=== PATIENT | male | born 1950 | race Caucasian/White ===

== ENCOUNTER → 2017-11-05 13:38 | Outpatient (CLI) | payer MEDICARE, SELFPAY ==
[2017-11-05 08:21] VITALS: BP 158/99; PULSE 58; RESP 16; TEMP 36.4; O2SAT 99; BMI 30.2
[2017-11-05 09:35] LABS: Hematocrit 40.8 % (40-54); Hemoglobin 14.1 g/dl (13.0-16.5); Mean Corp Hgb Conc 34.6 g/gl (32-36); Mean Corpuscular Hgb 31.8 pg (27.0-32.0); Mean Corpuscular Volume 91.9 fL (80-94); Mean Platelet Vol. 9.7 fl (6.2-12.0); Platelet Count 136 K/mm3 (150-450); RBC Distribution Width CV 12.3 % (11.6-14.6); RBC Distribution Width SD 41.5 fl (35.1-43.9); Red Blood Count 4.44 M/mm3 (4.6-6.2); Scan Indicated on CBC? Y/N NO
[2017-11-05 09:44] LABS: International Normalized Ratio 1.1; Prothrombin Time (Protime)PT. 13.3 SECONDS (11.7-14.9)
[2017-11-05 09:45] LABS: Partial Thromboplast Time 30.2 Seconds (24.1-36.2)
[2017-11-05 10:11] LABS: AST(SGOT) 16 U/L (15-37); Alanine Aminotransfer ALT/SGPT 17 U/L (12-78); Albumin, Serum 3.4 g/dL (3.4-5.0); Alkaline Phosphatase 90 U/L (45-117); Bilirubin, Direct 0.16 mg/dL (0.00-0.30); Globulin 3.3 g/dL (2.2-4.2); Protein, Total 6.7 g/dL (6.4-8.2)
== END ==
PROVIDERS: Anesthesiology; Family Provider Family Medicine; PCP Family Medicine; Visit Provider Urology
DX: R69 Illness, unspecified (principal)
CPT/HCPCS: 80076; 85027; 85610; 85730; 93005

== ENCOUNTER → 2018-03-24 12:23 | Outpatient (CLI) | payer MEDICARE, SELFPAY ==
--- NOTE | 2018-03-24 12:27 | STEWCON_ITS ---
Reason For Study: LYNCH Stress Results Protocol: Benson Protocol Maximum Predicted HR: 152 bpm Target HR: 129 bpm% Max imum Predicted HR: 97 % DurationHeart Rate Stage (mm:ss) (bpm) BPCom ment Baseline 49 136/90 Definity 3 ML Given Diluted Benson Protocol Stage I 3:00 10 0 128/76 Benson Protocol Stage II 3:00 11 5 130/74 Benson Protocol Stage III 1:30 14 8 / Recovery 98 124/86 Stress Duration: 7:30 mm:ss Maximum Stress HR: 148 bpmM ETS: 9 Baseline Echocardiogram Findings Stress Echo Wall motion Data Resting WMIntermediate WMStress WM Resting Wall Motion Wall Motion Stress All segments Normal. All segments Hyperkinetic. Ejection Fraction 55 %. Ejection Fraction 65 %. Stress Results Heart rate response: appropriate Blood pressure response: normal resting BP - appropriate response Arrhythmias: rare PVC pretest; occasional PVC during exercise; intermittent ventricular bigeminey during exercise; occasional PVC during recovery Functional capacity: good Stopped secondary to: dyspnea. EKG Data Baseline ECG: sinus bradycardia. Peak exercise ECG: no obvious ECG changes. Symptoms with Stress No c/o chest discomfort during exercise / recovery. Interpretation Summary Negative (adequate) Stress Echocardiograpm Ordering Physician: Joss Burr Referring Physician: Kulwant Ohara MD Performed By: Ashlyn Palm, RDCS, RVT
== END ==
PROVIDERS: Family Provider Family Medicine; PCP Family Medicine; Visit Provider Family Medicine
DX: R06.09 Other forms of dyspnea (principal)
CPT/HCPCS: 93017; 93350; Q9957; A4216; C8928

== ENCOUNTER → 2018-04-14 09:55 | Outpatient (CLI) | payer MEDICARE, SELFPAY ==
[2018-04-14 12:21] LABS: Anion Gap 8 (5-15); BUN 21 mg/dL (7-18); BUN/Creat Ratio 19.8 RATIO (10-20); Calcium,Total 8.7 mg/dL (8.5-10.1); Chloride 108 mmol/L (98-107); Creatinine, Serum 1.06 mg/dL (0.70-1.30); EST Glomerular Filtration Rate 74 mL/min (>60); Est Glom Filt Rate - Afr Amer 89 mL/min (>60); Glucose 87 mg/dL (74-106); PSA,Total - Annual Screen 4.07 ng/mL (0.00-4.00); Potassium 4.3 mmol/L (3.5-5.1); Sodium Level 142 mmol/L (136-145)
== END ==
PROVIDERS: Family Provider Family Medicine; PCP Family Medicine; Visit Provider Family Medicine
DX: Z00.00 Encounter for general adult medical examination without abnormal findings (principal); Z12.5 Encounter for screening for malignant neoplasm of prostate
CPT/HCPCS: 36415; 80048; 84153; G0103

== ENCOUNTER → 2018-09-11 10:49 | Outpatient (CLI) | payer MEDICARE, SELFPAY ==
--- NOTE | 2018-09-11 10:54 | ECHOD_ITS ---
Reason For Study: DYSPNEA/SOB Procedure This was a 2D Doppler, Color Flow transthoracic echocardiogram. Exam performed in department. Left Ventricle Normal LV size. Left ventricular systolic function is normal. The estimated ejection fraction is 60 %. Diastolic function is indeterminate. No regional wall motion abnormalities noted. Right Ventricle Normal RV size. Normal systolic function. Atria Normal left atrium. Normal right atrium. No doppler evidence for ASD. Mitral Valve There is no mitral annular calcification. Normal mitral valve. Mild (1+) mitral valve insufficiency. Tricuspid Valve Normal tricuspid valve. Trivial tricuspid valve insufficiency. Right ventricular systolic pressure estimated to be 23 mmHg. Aortic Valve Trisinus/trileaflet aortic valve. Normal aortic valve. Pulmonic Valve The pulmonic valve is not well visualized. Mild (1+) pulmonic valve insufficiency. Great Vessels Normal sized aortic root. Pericardium/Pleural No pericardial effusion. MMode/2D Measurements & Calculations LVIDd: 5.5 cm IVSd: 1.1 cm Ao root diam: 3.5 cm LVIDs: 3.6 cm LVPWd: 0.92 cm LA dimension: 4.3 cm RVDd: 3.7 cm FS: 34.9 % LAV(MOD-bp): 53.8 ml LA A4 area: 17.2 cm2 RA A4 area: 14.5 cm2 LAV(MOD-bp) Indexed: 26.1 ml/m2 LAV(MOD-sp2): 50.0 ml LAV(MOD-sp4): 50.0 ml Doppler Measurements & Calculations MV E max romie: 48.0 cm/sec Lat Peak E' Romie: 5.7 cm/sec Med Peak E' Romie: 4.5 cm/sec MV A max romie: 73.3 cm/sec E/E' lat: 8.5 E/E' med: 10.7 MV E/A: 0.65 Ao V2 max: 94.7 cm/sec LV V1 max: 71.8 cm/sec PA V2 max: 127.4 cm/sec Ao max P.6 mmHg LV V1 max P.1 mmHg TR max romie: 220.9 cm/sec TR max P.5 mmHg Interpretation Summary Left ventricular systolic function is normal. The estimated ejection fraction is 60 %. Mild (1+) mitral valve insufficiency. Trivial tricuspid valve insufficiency. Mild (1+) pulmonic valve insufficiency. Right ventricular systolic pressure estimated to be 23 mmHg. Diastolic function is indeterminate. Ordering Physician: Joss Burr Referring Physician: Joss Burr Performed By: Teetee Ruiz RDCS, RVT
== END ==
PROVIDERS: Family Provider Family Medicine; PCP Family Medicine; Referring Provider Family Medicine; Visit Provider Family Medicine
DX: R06.09 Other forms of dyspnea (principal)
CPT/HCPCS: 93306

== ENCOUNTER → 2018-11-18 07:16 | Outpatient (CLI) | payer MEDICARE, SELFPAY ==
[2018-11-18 07:40] LABS: EGFR FINGERSTICK > 60.0000 mL/min (>60)
== END ==
PROVIDERS: Family Provider Family Medicine; PCP Family Medicine; Referring Provider Otolaryngology; Visit Provider Otolaryngology
DX: H93.12 Tinnitus, left ear (principal); H91.90 Unspecified hearing loss, unspecified ear

== ENCOUNTER → 2019-04-14 | Outpatient (CLI) | payer MEDICARE, SELFPAY ==
[2019-04-14 12:50] LABS: Anion Gap 2 (5-15); BUN 18 mg/dL (7-18); BUN/Creat Ratio 18.3 RATIO (10-20); Calcium,Total 8.7 mg/dL (8.5-10.1); Chloride 109 mmol/L (98-107); Creatinine, Serum 0.98 mg/dL (0.70-1.30); EST Glomerular Filtration Rate 80 mL/min (>60); Est Glom Filt Rate - Afr Amer 97 mL/min (>60); Glucose 86 mg/dL (74-106); PSA,Total - Annual Screen 1.62 ng/mL (0.00-4.00); Potassium 4.3 mmol/L (3.5-5.1); Sodium Level 139 mmol/L (136-145)
[2019-04-14 17:47] LABS: Cholesterol 151 mg/dL (200); High Density Lipoprotein 46 mg/dL; Triglycerides 94 mg/dL; Very Low Density Lipoprotein 19 mg/dL (5-40)
== END | disposition home or self-care (01) ==
LOC: MTLAB 09:24
PROVIDERS: Family Provider Family Medicine; PCP Family Medicine; Referring Provider Family Medicine; Visit Provider Family Medicine
DX: I10 Essential (primary) hypertension (principal); Z12.5 Encounter for screening for malignant neoplasm of prostate
CPT/HCPCS: 36415; 80048; 80061; 84153; G0103

== ENCOUNTER → 2019-05-26 | Outpatient (CLI) | payer MEDICARE, SELFPAY ==
[2019-05-11 13:37] VITALS: BMI 30.1
--- NOTE | 2019-05-26 07:51 | ECHOCS_ITS ---
Reason For Study: Dyspnea/SOB Procedure This was a 2D Doppler, Color Flow transthoracic echocardiogram. The study was technically difficult. Contrast injection was performed. Exam performed in department. Left Ventricle Mild concentric left ventricular hypertrophy. The estimated ejection fraction is 60 %. Stage 1 diastolic dysfunction. No regional wall motion abnormalities noted. Right Ventricle Normal size and thickness. Normal systolic function. Atria Normal left atrium. Normal right atrium. Normal atrial septum. Mitral Valve The mitral valve is structurally normal. No prolapse or stenosis seen. Trivial mitral valve insufficiency. Tricuspid Valve Normal tricuspid valve. Trivial tricuspid valve insufficiency. Right ventricular systolic pressure estimated to be 25 mmHg. Aortic Valve Normal aortic valve. Trisinus/trileaflet aortic valve. Pulmonic Valve Normal pulmonic valve. Trivial pulmonic valve insufficiency. Great Vessels Normal aortic root. Normal arch. Normal inferior vena cava. Inferior vena cava collapse with sniff. Pericardium/Pleural No pericardial effusion. Medication 22 gauge I.V. with prn adaptor inserted into right arm. Diluted definity 3ml given slow IV push to enhance endocardial definition. Performed a rapid injection of agitated mix of 9 cc saline and 1cc air to assess for atrial septal defect. MMode/2D Measurements & Calculations LVIDd: 4.7 cm IVSd: 1.5 cm LA dimension: 4.5 cm LVIDs: 3.1 cm LVPWd: 1.3 cm RVDd: 3.4 cm FS: 34.5 % LAV(MOD-bp): 48.5 ml LA A4 area: 17.5 cm2 RA A4 area: 16.4 cm2 LAV(MOD-bp) Indexed: 23.8 ml/m2 LAV(MOD-sp2): 46.8 ml LAV(MOD-sp4): 47.9 ml Time Measurements MV dec time: 0.30 sec Doppler Measurements & Calculations MV E max romie: 46.7 cm/sec Lat Peak E' Romie: 5.6 cm/sec Med Peak E' Romie: 4.5 cm/sec MV A max romie: 75.1 cm/sec E/E' lat: 8.4 E/E' med: 10.3 MV E/A: 0.62 MV V2 max: 80.9 cm/sec MV P1/2t max romie: 44.0 cm/sec Ao V2 max: 96.4 cm/sec MV max P.6 mmHg MV P1/2t: 140.5 msec Ao max P.7 mmHg MV V2 mean: 34.4 cm/sec MV dec slope: 91.7 cm/sec2 MV mean P.57 mmHg MV V2 VTI: 24.7 cm MVA(P1/2t): 1.6 cm2 LV V1 max: 72.8 cm/sec PA V2 max: 132.9 cm/sec TR max romie: 225.1 cm/sec LV V1 max P.1 mmHg TR max P.3 mmHg Interpretation Summary Mild concentric left ventricular hypertrophy. The estimated ejection fraction is 60 %. Stage 1 diastolic dysfunction. Trivial mitral valve insufficiency. Trivial tricuspid valve insufficiency. Right ventricular systolic pressure estimated to be 25 mmHg. Compared to echo report dated 09/11/2018, no appreciable changes noted. Ordering Physician: Yamil Sewell Referring Physician: Joss Burr M.D. Performed By: Chapito Willis RCS
== END | disposition home or self-care (01) ==
LOC: CVS 07:50
PROVIDERS: Family Provider Family Medicine; PCP Family Medicine; Referring Provider Internal Medicine Cardiovascular Disease; Visit Provider Internal Medicine Cardiovascular Disease
DX: R06.09 Other forms of dyspnea (principal)
CPT/HCPCS: 93306; Q9957; A4216; C8929

== ENCOUNTER → 2019-05-28 | Outpatient (CLI) | payer MEDICARE, SELFPAY ==
[2019-05-11 13:37] VITALS: BMI 30.1
--- NOTE | 2019-05-28 09:41 | STEWCON_ITS ---
Reason For Study: Dyspnea on Exertion Stress Results Protocol: Benson Protocol Maximum Predicted HR: 151 bpm Target HR: 128 bpm % Maximum Predicted HR: 83 % DurationHeart Rate Stage (mm:ss) (bpm) BP Comment Baseline 58 122/80No Chest Pain; Diluted Definity 3 ML Given Benson Protocol Stage I 3:00 91 130/70No Chest Pain Benson Protocol Stage II 3:00 106 134/70No Chest Pain; Mild Dyspnea Benson Protocol Stage II 3:00 125 142/74No Chest Pain; Mild to Moderate Dyspnea; Knee Pain Recovery 73 118/74No Chest Pain Stress Duration: 9:00 mm:ss Maximum Stress HR: 125 bpm METS: 10 Baseline Echocardiogram Findings The estimated ejection fraction is 60 %. Stress Echo Wall motion Data Resting WM Intermediate WM Stress WM Resting Wall Motion Wall Motion Stress No regional wall motion Mid-Lateral : Mildly hypokinetic. abnormalities noted. Mid-Inferior: Mildly hypokinetic. EKG Data The baseline ECG displays normal sinus rhythm. The patient exercised according to the regular Benson protocol for a total duration of 9:00. The maximum heart rate attained was 127 beats per minute. This was 84% of maximum predicted heart rate. The patient exercised into stage 4 of the Benson protocol. During stress, there were no ST or T wave changes noted to suggest ischemia. No clinical angina was noted. Interpretation Summary The estimated ejection fraction is 60 %. Mid-Lateral : Mildly hypokinetic Mid-Inferior: Mildly hypokinetic Abnormal, adequate, treadmill echocardiogram. Positive for ischemia for possible inferior lateral wall hypokinesis seen in the parasternal short axis only. No anginal symptoms noted. Rare PVCs and ventricular couplets noted. Average exercise capacity for age. Appropriate blood pressure response to exercise. Final LVEF approximately 70%. Difficult echo windows requiring Definity enhancing agent. Test terminated due to dyspnea which may be an anginal equivalent. No complications. The study was technically difficult. Contrast injection was performed. Ordering Physician: Yamil Sewell Referring Physician: Joss Burr Performed By: Reyna Dill, KHARI, RVT
== END | disposition home or self-care (01) ==
LOC: CVS 09:40
PROVIDERS: Family Provider Family Medicine; PCP Family Medicine; Referring Provider Internal Medicine Cardiovascular Disease; Visit Provider Internal Medicine Cardiovascular Disease
DX: I10 Essential (primary) hypertension (principal); R06.09 Other forms of dyspnea
CPT/HCPCS: 93017; 93350; Q9957; A4216; C8928

== ENCOUNTER 2019-06-30 07:01 | Day surgery (SDC) | payer MEDICARE, SELFPAY ==
[2019-05-11 13:37] VITALS: BMI 30.1
--- NOTE | 2019-06-02 10:17 | RAD_ITS ---
STUDY: X-RAY CHEST REASON FOR EXAM: Male, 68 years old. Pre-op, heart catheterization. TECHNIQUE: PA and lateral views of the chest. COMPARISON: PA chest and left RIBS, June 29, 2015. FINDINGS: The lungs are clear and expanded. There is a calcified granuloma along the right diaphragmatic surface. There is no demonstrated pleural abnormality. Normal size heart. Normal mediastinum and roque. Normal visualized pulmonary arteries. Normal visualized aortic arch and descending thoracic aorta. Normal visualized thoracic spine. Normal visualized ribs, clavicles, and shoulders. There is no demonstrated abnormality of the visualized soft tissue structures of the upper abdomen. RAD/Chest PA and Lateral IMPRESSION: No acute cardiopulmonary disease or major interval change. Electronically Signed: Tomas Mace DO at 17:56 EDT Tel [phone], Service support ,
[2019-06-02 11:28] LABS: Hematocrit 39.1 % (40-54); Hemoglobin 13.5 g/dl (13.0-16.5); Mean Corp Hgb Conc 34.5 g/gl (32-36); Mean Corpuscular Hgb 31.3 pg (27.0-32.0); Mean Corpuscular Volume 90.5 fL (80-94); Mean Platelet Vol. 9.6 fl (6.2-12.0); Platelet Count 153 K/mm3 (150-450); RBC Distribution Width CV 12.4 % (11.6-14.6); RBC Distribution Width SD 40.1 fl (35.1-43.9); Red Blood Count 4.32 M/mm3 (4.6-6.2); White Blood Count 4.5 K/mm3 (4.4-11.0)
[2019-06-02 11:29] LABS: Scan Indicated on CBC? Y/N NO
[2019-06-02 11:36] LABS: International Normalized Ratio 1.1; Prothrombin Time (Protime)PT. 13.8 SECONDS (11.7-14.9)
[2019-06-02 11:37] LABS: Partial Thromboplast Time 30.4 Seconds (24.1-36.2)
[2019-06-02 12:02] LABS: AST(SGOT) 16 U/L (15-37); Alanine Aminotransfer ALT/SGPT 18 U/L (16-61); Albumin, Serum 3.3 g/dL (3.2-5.0); Alkaline Phosphatase 89 U/L (45-117); Anion Gap 5 (5-15); BUN 16 mg/dL (7-18); BUN/Creat Ratio 15.5 RATIO (10-20); Bilirubin, Direct 0.14 mg/dL (0.00-0.30); Calcium,Total 8.5 mg/dL (8.5-10.1); Chloride 109 mmol/L (98-107); Cholesterol 142 mg/dL (200); Creatinine, Serum 1.03 mg/dL (0.70-1.30); EST Glomerular Filtration Rate 76 mL/min (>60); Est Glom Filt Rate - Afr Amer 92 mL/min (>60); Globulin 3.3 g/dL (2.2-4.2); Glucose 89 mg/dL (74-106); High Density Lipoprotein 48 mg/dL; Potassium 4.5 mmol/L (3.5-5.1); Protein, Total 6.6 g/dL (6.4-8.2); Sodium Level 142 mmol/L (136-145); Triglycerides 108 mg/dL; Very Low Density Lipoprotein 22 mg/dL (5-40)
[2019-06-28 13:01] VITALS: BMI 30.1
[2019-06-29 09:30] VITALS: PULSE 51
--- NOTE | 2019-06-29 16:24 | HP.PCM_ITS ---
History and Physical Date of Admission: 06/30/19 [facility] [address] [place], [place] [address] OFFICE VISIT Date of Service: 06/28/19 MR#:[id number]:[id number] Name: YI SHIRLEY ARep #:[id number] : 1950 Provider:Yamil Sewell MD Age/Sex: 68/M Location:[facility] Status:Signed HPI HPI History of Present Illness Surgical H&P: Yes Details: History of Present Illness Details: Referring physician Dr. Joss Burr Mr. Simpson he is a very pleasant 68-year-old gentleman former smoker who quit around 1994 after smoking 20 pack years, nonalcoholic, with hypertension, allergies and occasionally requires Pro Air inhaler, and strong positive family history and several of his first-degree relatives including his mother, father brothers and sisters. Specifically his father at age 85 and underwent a CABG surgery followed several years later by a valve repair surgery. His coronary disease presented at age 63. His mother at 81 and had a pacemaker, brother had an GA and apparently a sudden cardiac arrest followed by CABG at age 59, and his sister is 61 years old and has recently received stents. Patient presents with worsening dyspnea on exertion and shortness of breath. On further history he underwent a treadmill EKG on 03/24/2018 at [facility]. That time he had rare PVCs, stop due to dyspnea, went about 7-1/2 minutes, and had appropriate blood pressure response to exercise. No chest pain was noted, and no imaging was obtained. In addition he underwent a 2D echo with Doppler on 09/11/2018 which showed an EF of 60%, undetermined diastolic function, mild mitral regurgitation, and an RVSP estimated to be 23 mmHg per it appears his dyspnea has been going on since at least 2013. His EKG dated 11/05/2017 showed sinus bradycardia, otherwise normal. EKG dated today 05/11/2019 shows normal sinus rhythm, left anterior hemiblock, and poor R wave progression across precordium which may be suggestive of old anterior wall myocardial infarction versus lead misplacement. In addition, the patient has a strong positive family history of coronary disease in his father who had bypass surgery at age 65 and again in his 80s, his mother who had bypass surgery in her 60s, a sister who had bypass surgery, and a brother who had bypass surgery in his 60s. Patient states that about a year ago he was supposed to undergo a TURP, and upon arrival for preop evaluation he was found to be significantly hypertensive. He is normally hypotensive. He was started on lisinopril and his blood pressure improved. Despite this improvement of his blood pressure, the patient has had episodes of exertional substernal chest pressure which is described as faint, with associated dyspnea on exertion, usually occurs at the conclusion of his exercise and then goes away in a few minutes. Despite adequate blood pressure control the symptoms have persisted. Patient states he had pulmonary function tests recently but I do not have those results. In order to better evaluate his above symptoms, he underwent a stress echocardiogram on 05/28/2019 which was abnormal for inferolateral ischemia. In addition prior to being started on dual antiplatelet therapy he noticed some tonya hematuria and requires a second TURP. Since starting on dual antiplatelet therapy he has had no further hematuria. His initial hematuria occurred under strenuous circumstances working in his garden. In our office his blood pressure is 132/84, and pulse is 56 and regular. His physical exam demonstrates clear lungs bilaterally, regular rate and rhythm, normal S1/S2, no S3-S4. EKGs as of 06/28/2019 shows sinus bradycardia, normal axis, normal intervals, no evidence of previous myocardial infarction. Lipids as of March 2019 showing LDL of 86 and an HDL of 46 per. Lipids as of 06/02/2019 show an LDL of 72 and HDL of 48. 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 Accompanied by: None Is patient in pain?: No Allergies No Known Allergies Allergy (Verified 06/28/19 13:01) Medications Dutasteride [Avodart] 0.5 mg PO DAILY 11/05/17 [History Confirmed 06/23/19] lisinopril 10 mg tablet 10 mg PO DAILY 04/26/19 [History Confirmed 06/23/19] aspirin 81 mg tablet,delayed release 81 mg PO DAILY #30 tab 05/11/19 [Rx Confirmed 06/23/19] clopidogrel 75 mg tablet 75 mg PO DAILY #30 tab 06/02/19 [Rx Confirmed 06/23/19] fluticasone propionate 50 mcg/actuation nasal spray,suspension 2 spray INTRANASAL DAILY PRN 06/28/19 [History Confirmed 06/23/19] Ejection fraction %: 60 to 64 [facility] Medical History Encounter for monitoring antiplatelet therapy (Acute) Other forms of angina pectoris (Acute) Abnormal EKG (Acute) Abnormal stress echo (Acute) Dyspnea on exertion (Acute) Essential hypertension (Chronic) Family history of ischemic heart disease (Chronic) BPH (benign prostatic hyperplasia) (Chronic) Surgical History History of cholecystectomy (Chronic 07/1992) History of cystoscopy (Chronic 05/10/14) History of prostate biopsy (Chronic 05/21/11) History of transurethral resection of prostate (Chronic 03/04/12) Family History Mother CAD (coronary artery disease) Brother , age 69 Pancreatic cancer Father , age 65 from pneumonia CAD (coronary artery disease) S/P CABG (coronary artery bypass graft), Onset Age: 65 Sister CAD (coronary artery disease) Stented coronary artery Brother CAD (coronary artery disease) Sister Multiple sclerosis Social History (Updated 06/28/19 @ 13:51 by Yamil Sewell MD) Smoking Status: Former smoker quit date: 11/24/94 Tobacco: How many years used: 20 alcohol intake: current alcohol intake frequency: holidays/special occasions only Alcohol type: beer substance use type: does not use caffeine: No ROS Const Const: Negative for fatigue, weakness, headache(s), frequent falls, difficulty sleeping or excessive sweating Eyes Eyes: Negative for loss of peripheral vision, transient loss of vision, blurry vision, double vision or tunnel vision ENT ENT: Negative for headache(s), dizziness, Nosebleed/epistaxis or balance problems Cardio Chest Pain: No Palpitations: No Edema: None Muscle aches with walking: None Resp Respiratory: Positive for SOB with activity; negative for SOB orthopnea\SOB lying down, Cough or paroxysmal nocturnal dyspnea GI GI: Negative nausea, vomiting, heartburn or black,tarry stools : Negative for hematuria Musc Musc: Negative for muscle aches/ myalgia, muscle weakness, joint pain or balance problems Skin Skin: Negative non-healing lesions, rash or unusual bruising Neuro Neuro: Negative for dizziness, lightheadedness, near syncope, syncope, frequent falls, headache(s), weakness, blurry vision, double vision or lack of coordination Sky Hematologic/Lymphatic: Negative for easy bleeding or easy bruising Endo Endo: Negative for fatigue, excessive sweating or increased thirst/drinking Psych Psych: Negative for anxiety or depression Allergy Allergy/Immunology: Negative for hives, Negative for rash Cardiology Exam Const Appearance: cooperative, healthy appearing and no acute distress Nutritional Appearance: well nourished Orientation: alert, oriented x3 and oriented to person Head Head: normal to inspection, normocephalic and atraumatic Nose: external nose normal Face and Sinus: face symmetric Mouth: oral mucosae normal Eyes General: appearance normal, both eyes and all related structures Eyelids: eyelids normal Conjunctivae: conjunctivae normal Pupils: PERRL and normal by confrontation EOM: EOM intact bilaterally Neck Neck: normal visual inspection and full ROM Carotids: normal carotid upstroke Chest Chest inspection: normal inspection of the chest Auscultation: Bilateral: Clear to Auscultation Cardio Palpation: normal PMI Rate: regular rate Rhythm: regular rhythm Heart sounds: S1 normal and S2 normal GI GI: normal to inspection, no hepatosplenomegaly and bowel sounds present Neuro General: alert, awake, oriented x3, CN's II-XI intact bilaterally and moves all extremities Skin Skin: no rashes or lesions noted Extremities Pulses: Normal: Right Femoral Pulse, Left Femoral Pulse, Right Dorsalis Pedis Pulse, Left Dorsalis Pedis Pulse, Right Posterior Tibial Pulse, Left Posterior Tibial Pulse, Right Radial Pulse, Left Radial Pulse Lower Extremity Edema: None: Bilateral Psych Psychological: normal affect Assessment & Plan 1. Abnormal stress echo R94.39 Plan 1. Abnormal stress echo: The patient has an abnormal stress echocardiogram superimposed on a gentleman with a strong positive family history of coronary artery disease in his mother, father, brother and sister. In addition he is a former smoker, and now requires redo TURP surgery for tonya hematuria. In order to better evaluate the patient's abnormal stress test, and also to risk stratify him for upcoming prostate surgery, I recommend he undergo a diagnostic left heart catheterization. The risks/benefits of the procedure were thoroughly explained to the patient and informed consent was obtained, including specific attention to lack of on-site surgical back-up, and the patient agrees to proceed. Should the patient have a significant lesion which would require intervention, we may consider bare-metal stenting. In the meantime he will continue baby aspirin and Plavix as he does not appear to have any tonya hematuria outside of strenuous exercise. In addition his blood pressure is well controlled and he will continue lisinopril. Pending upon the outcome of his catheterization will determine whether he requires additional antilipid therapy despite his ideal lipid numbers at this time. 2. Return office in 6 months Orders Orders: 12 Lead EKG performed by [facility] Today Plan Detail Other Orders Orders: 12 Lead EKG performed by [facility] Today I10 Follow Up +6M (Donato) Coding Level of Care Code Off vis,est,level 3 Diagnoses Abnormal stress echo R94.39 Coding Level of Care Code Off vis,est,level 3 Diagnoses Abnormal stress echo R94.39 Supplemental Info Supplemental Information Labs LDL Cholesterol 72 mg/dL (0-130) 06/02/19 HDL Cholesterol 48 mg/dL (40-) 06/02/19 Triglycerides 108 mg/dL (-199) 06/02/19 VLDL Cholesterol 22 mg/dL (5-40) 06/02/19 Diagnostics Electrocardiogram 06/28/19 Echocardiogram 05/26/19 Stress Echocardiogram 05/28/19 Chest X-Ray 06/02/19 06/28/19 1351<Electronically signed by Yamil Sewell MD> Date Yamil Sewell MD
[2019-06-30] VITALS (37 sets, daily range): BP systolic 94–163; BP diastolic 52–98; PULSE 43–86; RESP 9–20; TEMP 36.6–36.7; O2SAT 95–99; BMI 29.6
--- NOTE | 2019-06-30 08:33 | DCINST_ITS ---
Discharge Diet: Low fat/ Low Cholesterol Discharge Activity: Return to Normal Activity May shower in (days): 1 - No tub baths for 5 days May resume sexual activity in: 1-2 weeks Lifting Restrictions: Do not lift anything greater than 10 pounds for 3 days Call your doctor if your incision/area has: Continuous Slow Oozing, Sudden Increased Bleeding, Increased Pain/ Swelling, Increased Redness, Foul Smelling Discharge, Swelling at the incision site Call your doctor if you observe: Fever of 101 or Higher, Shortness of breath, Chest pain Remove Dressing in (days):: 1 Cleanse incision/area with: Soap & Water Additional Instructions: You will continue with Aspirin therapy. You will remain on Plavix and Aspirin for at least 3-6 months before proceeding with TURP procedure unless surgeon is ok with procedure on both Aspirin and Plavix. Ideally, our goal is one year before stopping Plavix. You are scheduled for an office appointment on 07/19/2019 at 10:[address] Sewell. You are started on two new medications to help manage heart disease. These are Coreg and Atorvastatin. We will monitor your cholesterol values on a routine basis to ensure safety and effectiveness. Please continue to monitor heart rate and blood pressure. We will call you to schedule groin check prior to golfing. If you have any questions or concerns, please call the [facility] Office at [phone]. Allergies/Adverse Reactions: Allergies No Known Allergies Allergy (Verified 06/28/19 13:01) Medications to take at Discharge Dutasteride [Avodart] 0.5 mg PO DAILY 11/05/17 lisinopril 10 mg tablet 10 mg PO DAILY 04/26/19 aspirin 81 mg tablet,delayed release 81 mg PO DAILY #30 tab 05/11/19 clopidogrel 75 mg tablet 75 mg PO DAILY #30 tab 06/02/19 fluticasone propionate 50 mcg/actuation nasal spray,suspension 2 spray INTRANASAL DAILY PRN 06/28/19 ALPRAZolam [Xanax] 0.5 mg PO BID PRN 06/29/19 Albuterol Sulfate [Proair Respiclick] 90 mcg IH Q4H PRN PRN 06/29/19 Atorvastatin Calcium [Lipitor] 40 mg PO QHS #90 tab 07/01/19 Carvedilol [Coreg (Beta Ramses)] 3.125 mg PO BID tablet 07/01/19 Primary Care Physician: Joss Burr MD [Primary Care Provider] - Test Results: Test results from this visit will be discussed in further detail at your follow- up appointment, if applicable. Please Follow Up With: Dr. Sewell When: 07/19/2019 at 10:00 AM Proposed Discharge Date: 07/01/19 Cardiac Rehabilitation Info Cardiac Rehabilitation Program Information: Cardiac Rehabilitation is important for patients like you who are recovering from a heart problem. Cardiac rehabilitation programs are recognized as integral to the continued care of the patient with coronary heart disease. The cardiac rehabilitation program is designed to optimize a patient's physical, psychological, and social functioning. Health nurse healthcare manager work in cardiac rehabilitation programs and assist you with getting the t reatments you need to get stronger and healthier - like exercise, healthy eating habits, and medications. Cardiac rehabilitation has been show to help people with heart problems live longer and have better life enjoyment than people who do not go to cardiac rehabilitation. Please contact the Cardiac Rehabilitation Program at [facility] at in two weeks if you have not heard from them.
[2019-06-30 08:46] LABS: ACT Activated Clotting Time 191 sec (74-137)
--- NOTE | 2019-06-30 08:51 | CL.I_ITS ---
Patient Name: YI SHIRLEY Study Date: 06/30/2019 Performing: Yamil Sewell MD Ht: 68.89 inches 175 cm : 1950 Wt: 199.98 lbs 90.71 kg Age: 68 Gender: male BSA: 2.06 PROCEDURE(S) PERFORMED JF52-ORU/COR/LV ZS61-MCH W OR WO PTCA, SINGLE CORONARY ARTERY CLINICAL PROFILE AND CO-MORBIDITIES Indications: New Onset Angina <= 2 months, Suspected CAD, Pre-Operative Evaluation Heart Failure: None Stress/Imaging Date: 05/28/2019 Stress Echocardiogram: Positive Low Risk Angina Classification Anginal Classification w/in 2 Weeks: CCS II CAD Presentations: Unstable angina. 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 RECOMMENDATIONS Referred for immediate PCI Highly recommend quitting all tobacco products Follow up with primary historic sites supervisor Risk factor modification ASA Indefinitley Plavix for at least 12 months Routine post interventional care Refer for Outpatient Cardiac Rehab Manual sheath removal per protocol Follow up with Dr. Sewell Manual sheath removal as pt is too thin for Mynx Pt will need at least 6 months of DAPT prior to TURP. Pt may undergo TURP if surgeon is agreeable to proceed with DAPT on board through surgery. DESCRIPTION OF PROCEDURE The patient arrived to the procedure lab. The risks and benefits of the procedure as well as a full d escription of our services here and lack of surgical backup were fully explained to the patient and/o r their significant other prior to the catheterization. The Timeout was completed, verifying the kayla ect patient and procedure. The patient's procedural site was prepped and draped in the usual fashion. Local anesthetic was given subcutaneously to right groin region with Lidocaine 2%. Using a modified Seldinger technique, arterial access was obtained via the right femoral artery, a 4Fr sheath was inse rted. Left Coronary Artery selective angiography was performed in multiple views using a 4 Fr. JL5 c atheter. Right Coronary Artery selective angiography was then performed in multiple views using a 4 F r. 3DRC catheter. Left Ventriculography was performed in DELGADO projection using a 4 Fr. Pigtail cathete r. LV to AO pullback pressures were then recordedThe images were reviewed and options discussed. A decision was then made to proceed with an Intervention, IVUS or other adjunct procedure. HS II Guide catheter was inserted and engaged into the RCA. BMW Wiggins Guide wire was advanced to the RCA. Emerge 2.0 x 8 Balloon catheter was inserted. Balloon catheter was advanced across lesio n in the RPL proximal PTCA balloon inflated at 10 atms for 11 secs. PTCA balloon inflated at 10 atms for 8 secs. PTCA balloon inflated at 10 atms for 14 secs. Angiogram performed post balloon dilatatio n. Synergy 2.50 x 12 Drug Eluting stent was inserted. Drug Eluting stent was advanced across the lesi on in the RPL proximal Angiogram performed pre stent deployment. NC Emerge 3.0 x 8 Balloon catheter was inserted. Balloon catheter was advanced across lesion in the RPL proximal Angiogram performed po st balloon dilatation. The arterial sheath was sutured in place and capped CORONARY ANGIOGRAPHY DOMINANCE: Right Dominant LEFT HEART ASSESSMENT Left Ventricular Ejection Fraction: by LV Gram 65 % Normal Left Ventricular systolic function Normal LV wall motion LEFT MAIN: 20 distal % Stenosis LEFT ANTERIOR DESCENDING ARTERY: PROX LAD: 50 % Stenosis CIRCUMFLEX ARTERY: OSTIAL CIRC: 30 % Stenosis RIGHT CORONARY ARTERY: MID RCA: Moderate ectasia RT PLV: 85 % Stenosis INTERVENTION INFORMATION LESION SITE: RPL (2nd) Lesion Complexity: Non-High/Non-C, lesion at bifurcation: No, thrombus present: No, lesion length: 12 mm, culprit lesion: Yes Pre Stenosis: 85 % Pre intervention BAILEY flow: 3 PROCEDURE: Drug Eluting Stent with pre and post dilatation Post Stenosis: 0 % Post intervention BAILEY flow: 3 Lesion Devices: ObjectVide[employer]ronic 6 Fr HSII 100cm Guide Catheter Melvin .014 BMW Wiggins Straight 190cm Percy Sci Synergy MR PARVIZ 2.50x12 Percy Sci NC EMERGE MR 3.00x08 BALLOON COMPLICATIONS No Complications PROCEDURE MEDICATIONS Versed 1 mg IV Oxygen: 2 L/min via nasal cannula Heparin 6000 unit(s) IV 06/30/2019 08:11:05 Nitro 200 mcg IC 06/30/2019 08:13:51 Nitro 200 mcg IC 06/30/2019 08:13:51 IV Bolus: .9 NaCl 500 ml total 06/30/2019 08:34:11 SUMMARY OF HEMODYNAMIC DATA Time AIR REST ECG 07:18:51 AO 120/71 (92) SA 07:58:15 LV 141/-19, 14 08:05:44 LV 141/-20, 12 08:05:50 LVp 146/-17, 11 08:05:55 AOp 139/71 (99) 08:06:00 Signed By Yamil Sewell MD On 06/30/2019 08:50:10 Yamil Sewell MD
--- NOTE | 2019-06-30 08:53 | EKG12_ITS ---
Test Reason : AM EKG Blood Pressure : / mmHG Vent. Rate : 055 BPM Atrial Rate : 055 BPM P-R Int : 194 ms QRS Dur : 090 ms QT Int : 452 ms P-R-T Axes : 046 003 056 degrees QTc Int : 432 ms Sinus bradycardia Low voltage QRS Borderline ECG When compared with ECG of 30-JUN-2019 13:09, MANUAL COMPARISON REQUIRED, DATA IS UNCONFIRMED Confirmed by RINKU BOGGS, ADRI ([id number]), slot editor TERESA RABAGO ([id number]) on 07/13/2019 2:00:45 PM Referred By: Yamil Sewell Confirmed By:MAGGIE DOBBS MD
[2019-06-30] MEDS: 0.9% Normal Saline 1,000 ML 150 ML IV (09:30)
--- NOTE | 2019-06-30 10:00 | EKG12_ITS ---
Test Reason : Blood Pressure : / mmHG Vent. Rate : 047 BPM Atrial Rate : 047 BPM P-R Int : 180 ms QRS Dur : 092 ms QT Int : 470 ms P-R-T Axes : 040 000 048 degrees QTc Int : 415 ms Marked sinus bradycardia Low voltage QRS Abnormal ECG When compared with ECG of 05-NOV-2017 08:50, No significant change was found Confirmed by RINKU BOGGS, ADRI ([id number]), editor & co founder TERESA RABAGO ([id number]) on 07/13/2019 2:04:56 PM Referred By: Yamil Sewell Confirmed By:MAGGIE DOBBS MD
--- NOTE | 2019-06-30 10:10 | CASEMGMT ---
RN SEBASTIÁN BOOSTER ASSEMBLER CM to room to meet with patient for initial transition planning/care coordination assessment. RN SEBASTIÁN introduced self and role at [facility]. Pt voices understanding and consents to assessment at this time. Pt resting in bed in no distress at this time. and daughter @ bedside. Pt is A/O at this time and answers all questions appropriately. Care providers, pharmacy, and demographics verified at this time. PCP: Dr Joss Burr Specialists: Dr Sewell--cardiology, Dr Boggs--urology @ [facility] Preferred Pharmacy: [facility] Insurance: [employer] [facility] Prescription Benefit: Yes Living Will/HPOA: Pt does not currently have LW/HCPOA and is interested in talking with SW. JASPREET Woo, made aware. LNOK: and 4 adult daughters Living Arrangements: Lives w/. Independent. Transportation: Pt states drives self and states no transportation concerns at this time. will drive @ [place] DME: Denies using any DME and denies needs. HHC/SNF: No history of either and no needs identified. Pt wishes to return home and states has no concerns with going home at time of discharge. CM to follow for any discharge planning/needs. Pt voices no further concerns/needs at this time. Advised pt to ask for CM if any further questions/concerns/needs arise. Voices understanding. PLAN: Home w/family support and discharge plans in place. Simon NIETO RN, CM
[2019-06-30 10:51] LABS: ACT Activated Clotting Time 153 sec (74-137)
[2019-06-30] MEDS: Morphine 2 MG/ML Syringe IV (11:03)
--- NOTE | 2019-06-30 11:10 | CASEMGMT ---
Per RN CM patient wants advance directive information. SW attempted to meet with patient, however nursing was working with patient and fire extinguisher charger said it would be awhile. SW will check back. Amna GAR MSW
--- NOTE | 2019-06-30 13:02 | NURSING ---
WINE MASTER called d/t hypotension & bradycardia.
[2019-06-30] MEDS: Atropine Sulfate 1 MG/10 ML Syringe IV (13:03)
[2019-06-30] MEDS: Ketorolac 15 MG/ML Vial IV (13:19)
--- NOTE | 2019-06-30 13:19 | CASEMGMT ---
SW attempted to talk with patient again, however per RN patient is not feeling well at this time. A few minutes later an THREAD PULLER was called. SW will check back with patient tomorrow regarding advance directives. Amna GAR MSW
[2019-06-30 13:28] LABS: Hematocrit 36.5 % (40-54); Hemoglobin 12.8 g/dL (13.0-16.5)
--- NOTE | 2019-06-30 13:35 | CHAPLAIN ---
Type of Pastoral Visit ___ Initial Visit ___ Follow-up Visit ___ On-call Visit ___ General Patient Visit ___ Spiritual Assessment ___ Family Conference ___ Bereavement _x__ Rapid Response ___ Code Blue ___ Other (describe below) Pastoral Care Referral From ___ Patient ___ Family ___ Nurse ___ Physician ___ Internal Grinder ___ Doctorate Of Chiropractic _x__ Other (describe below) Sacrament/Intervention _x__ Active listening ___ Anointing ___ Holiness ___ Bereavement ___ Communion ___ Nora exploration ___ ___ Life review _x__ Prayer ___ Reconciliation ___ Sacrament of Sick _x__ Supportive presence ___ Wedding ___ Other (describe below) Pastoral Comments offered support to family first as patient was attended by medical team; family members welcomed prayer spoken for pt; then talked with patient and offered support; presence given until crisis passed; pt was alert and talkative to this raw scales operator
--- NOTE | 2019-06-30 14:01 | CRPHASE1 ---
Patient Communication PHII Cardiac Rehab Discussed with Patient:: Yes Guide to Cardiac Rehab Given to Patient:: Yes Cardiac Rehab Facility Choice List Given to Patient:: Yes - [facility] Choice Program [facility] CR PHII:: Communication Given to CR, Refer to [facility] Photoresist Contact Printer:: Raimundo OCASIO PCP:: Yamil Sewell Sessions:: 36 sessions - 3 days/wk, 12 weeks Risk Factors/Lifestyle Smoking Status: Former smoker Hx Hypertension: Yes - ON LISINOPRIL Hx Diabetes Mellitus Type 2: No Height: 1.75 m Weight:: 90.7 kg BMI: 29.6 Post-Menopausal: No ETOH: Yes Caffeine: No Substance Abuse: No Family History: Family History (Last Reviewed 06/28/19 @ 13:03 by Ashley Heller) Mother CAD (coronary artery disease) Brother Pancreatic cancer Father CAD (coronary artery disease) S/P CABG (coronary artery bypass graft), Onset Age: 65 Sister CAD (coronary artery disease) Stented coronary artery Brother CAD (coronary artery disease) Sister Multiple sclerosis Family History: Heart Disease, Hypertension Laboratory Values: Cardiac Rehab Phase I Labs Triglycerides 108 mg/dL (-199) 06/02/19 10:35 Cholesterol 142 mg/dL (200) 06/02/19 10:35 72 mg/dL (0-130) 06/02/19 10:35 48 mg/dL (40-) 06/02/19 10:35 Phase I Education Given On:: [place], Nutrition, Antiplatelet medication, CHF Issues Affecting Care:: None Knowledge of Condition:: Yes Hospital Course Presenting Symptoms:: SOB NO CHEST PAIN' Cardiac Cath Date:: 06/30/19 Medical/Surgical History [place]:: No Angina:: No CAD:: No Cardiomyopathy:: No Pulmonary:: No COPD:: No Asthma:: No Diabetes:: No Diabetes Type II:: No Hypertension:: Yes Discharge/Home/Social Eval Discharge Disposition: Home Marital Status: - Cardiac Rehabilitation Info Cardiac Rehabilitation Program Information: Cardiac Rehabilitation is important for patients like you who are recovering from a heart problem. Cardiac rehabilitation programs are recognized as integral to the continued care of the patient with coronary heart disease. The cardiac rehabilitation program is designed to optimize a patient's physical, psychological, and social functioning. Health progressive care unit registered nurse work in cardiac rehabilitation programs and assist you with getting the treatments you need to get stronger and healthier - like exercise, healthy eating habits, and medications. Cardiac rehabilitation has been show to help people with heart problems live longer and have better life enjoyment than people who do not go to cardiac rehabilitation. Please contact the Cardiac Rehabilitation Program at [facility] at in two weeks if you have not heard from them.
--- NOTE | 2019-06-30 14:05 | CRPH1.INSTRU ---
General Education CAD and cardiac anatomy and function:: Patient communicates acknowledgment, Family communicates acknowledgment Explanation of diagnoses and procedures:: Patient communicates acknowledgment, Family communicates acknowledgment Sign/Symptoms of FL:: Patient communicates acknowledgment, Family communicates acknowledgment Antiplatelet therapy: Not instructed Proper use of NTG-SL: Not instructed Emergency procedures and activation of EMS: Patient communicates acknowledgment, Family communicates acknowledgment Compliance of all prescribed medications: Patient communicates acknowledgment, Not instructed Smoking Patient Nicotine/Smoking Risk Factors Are:: Non-smoker Dyslipidemia Patient Dyslipidemia Risk Factors Are:: Total Cholesterol - 142, Triglycerides - 108, HDL - 48, LDL - 72 Recommendations Include:: Lipid profile provided Overweight/Obesity Patient Overweight/Obesity Risk Factors Are:: Overweight = 26-29 Hypertension Recommendations Include:: Maintain BP <130/85 - ON MEDS Heart Disease Patient Heart Disease Risk Factors Are:: Family history of heart disease < 65 years old Recommendations Include:: Educated family members of their risk Heart Disease Response Code:: Patient communicates acknowledgment Diabetes Patient Diabetes Risk Factors Are:: No documented hx of diabetes Metabolic Syndrome Patient Metabolic Syndrome Risk Factors Are [3 of 5]:: Hypertension, Low HDL <40 [male] or < 50 [female] Metabolic Syndrome Response Code:: Patient communicates acknowledgment Sedentary Sedentary Response Code:: Patient communicates acknowledgment - VERY ACTIVE Stress Patient Stress Risk Factors Are:: Patient denies stress as a risk factor
--- NOTE | 2019-06-30 17:50 | NURSING ---
Bedrest up at 1735. Pt up to chair w/no difficulties. Back Pain 3, but states much better, just uncomfortable, not painful.
[2019-06-30] MEDS: Ibuprofen 600 MG Tablet PO (18:06)
[2019-06-30] MEDS: Atorvastatin Calcium 40 MG Tablet PO (21:23)
[2019-06-30] MEDS: Docusate Sodium 100 MG Capsule PO (21:24)
[2019-07-01] VITALS (10 sets, daily range): BP systolic 93–139; BP diastolic 61–97; PULSE 42–68; RESP 11–17; TEMP 36.6; O2SAT 96–98
[2019-07-01 04:15] LABS: Absolute Lymphocyte Count 1.06 X10^3/uL (0.83-4.51); Absolute Neutrophil Count 3.1 X10^3/uL (2.0-7.7); Basophil# 0.05 X10^3/uL; Eosinophil# 0.23 X10^3/uL; Eosinophils% 4.5 % (0-5); Hematocrit 33.7 % (40-54); Hemoglobin 11.6 g/dL (13.0-16.5); Lymphocyte # 1.06 X10^3/ul (4.0); Lymphocyte % 20.7 % (19-41); Mean Corp Hgb Conc 34.4 g/dL (32-36); Mean Corpuscular Hgb 32.2 pg (27.0-32.0); Mean Corpuscular Volume 93.6 fL (80-94); Mean Platelet Vol. 9.2 fl (6.2-12.0); Monocyte# 0.64 X10^3/uL; Monocyte% 12.5 % (0-10); NRBC Flagged by Analyzer 0 % (0-5); Neutrophil # 3.12 X10^3/uL (2.7-7.7); Neutrophil % 60.9 % (47-70); Platelet Count 116 K/mm3 (150-450); RBC Distribution Width CV 12.1 % (11.6-14.6); RBC Distribution Width SD 41.9 fl (35.1-43.9); White Blood Count 5.1 K/mm3 (4.4-11.0)
[2019-07-01 04:28] LABS: Anion Gap 6 (5-15); BUN 15 mg/dL (7-18); Chloride 113 mmol/L (98-107); Creatinine, Serum 0.94 mg/dL (0.70-1.30); EST Glomerular Filtration Rate 85 mL/min (>60); Est Glom Filt Rate - Afr Amer 103 mL/min (>60); Estimated Creatinine Clearance 71.76 ml/min; Glucose 94 mg/dL (74-106); Potassium 3.9 mmol/L (3.5-5.1); Sodium Level 143 mmol/L (136-145)
--- NOTE | 2019-07-01 07:24 | PCM.PN.BLA ---
Progress Note Patient is not discharged on beta-wicho due to significant bradycardia and hypotension noted with introduction of Coreg.
--- NOTE | 2019-07-01 08:47 | PN.CARD_ITS ---
Subjectve: Patient feeling much better this morning. No further back pain. Telemetry showed normal sinus rhythm with rare PVCs. Hemoglobin and creatinine are within nominal limits. Right groin is clean/dry/intact without evidence of thrills, bruits or hematoma. EKG shows normal sinus rhythm, no acute changes. Objective: Vital Signs Temp Pulse Resp BP Pulse Ox 97.8 F 52 L 16 113/77 96 07/01/19 04:00 07/01/19 06:00 07/01/19 06:00 07/01/19 06:00 07/01/19 06:00 Oxygen Delivery Method Room Air Weight: 202 lb 2.622 oz Body Mass Index (BMI) 29.6 Intake and Output for Last 24 Hours 06/29/19 06/30/19 07/01/19 23:59 23:59 23:59 Intake Total 1500 / 1500 200 / 200 Output Total 450 / 450 350 / 350 Balance 1050 / 1050 -150 / -150 General: Awake, Alert, Oriented x 3 HEENT: PERRL, EOMI, Sclera Non Icteric Neck: Supple, Good ROM, No Lymph Node Enlargement Lungs: Clear to auscultation Cardiovascular: Regular Rhythm, Normal S1, Normal S2, No Murmurs, No Rubs, No Gallops Vascular: No Carotid Bruits, Normal Femoral Pulses, Normal Radial Pulses, Normal Dorsalis Pedal Pulse, Normal Posterior Tibial Pulses Abdomen: Bowel Sounds Present, Soft, Non Tender, No HSM, No Organomegaly Extremities: No Cyanosis, No Clubbing, No edema Neurological: No Focal Motor or Sensory Deficit 06/30/19 13:10: Hgb 12.8 L, Hct 36.5 L 07/01/19 04:10: WBC 5.1, RBC 3.60 L, Hgb 11.6 L, Hct 33.7 L, MCV 93.6, MCH 32.2 H, MCHC 34.4, Plt Count 116 L, MPV 9.2, Immature Gran % (Auto) 0.400, Neut % (Auto) 60.9, Lymph % (Auto) 20.7, Sheridan % (Auto) 12.5 H, Eos % (Auto) 4.5, Baso % (Auto) 1.0, Absolute Neuts (auto) 3.1, Nucleated RBC % 0 07/01/19 04:10: Sodium 143, Potassium 3.9, Chloride 113 H, Carbon Dioxide 24.0, Anion Gap 6, BUN 15, Creatinine 0.94, Est GFR (MDRD) Af Amer 103, Est GFR (MDRD) Non-Af 85, BUN/Creatinine Ratio 16.0, Glucose 94, Calcium 8.0 L Rhythm: EKG: ECHO: Stress Test: Cardiac Cath: PCI: CT Surgery: Holter monitor: EPS: PPM: CXR: Chest CT Scan: Medical Necessity - Tobacco Use Smoking Status: Former smoker Assessment/Plan 1. Coronary artery disease: The patient was found to have significant mid right posterior lateral branch stenosis of approximately 85% treated with a drug- eluting stent with an excellent result. He had minimal nonobstructive disease of his LAD, left circumflex and remaining right coronary artery. Patient is at low risk for noncardiac prostate surgery. He informs me this morning that he is prostate biopsy was negative for cancer. At this point the patient require dual antiplatelet therapy of baby aspirin and Plavix for at least one years time. The patient will require at least a minimum of dual antiplatelet therapy of 3 months prior to any kind of surgical procedure. Our preference would be that he have at least 6 months of dual Atripla therapy prior to any surgery, but at a minimum of 3 months. In addition the patient was started on Coreg for his hypertension and beta- wicho requirements. He will continue lisinopril. He will follow-up with us in the office in 1 week's time for groin check. He will then be enrolled in cardiac rehab. 2. Hyperlipidemia: Continue Lipitor. Repeat lipid profile after cardiac rehab is completed. 3. Patient will be discharged home. Thank you very much for the opportunity to participate in the cardiac care of your patient. Code Visit Inpatient E&M: [id number] Subs Hosp L2
--- NOTE | 2019-07-01 08:53 | EKG12_ITS ---
Test Reason : Blood Pressure : / mmHG Vent. Rate : 085 BPM Atrial Rate : 085 BPM P-R Int : 186 ms QRS Dur : 088 ms QT Int : 392 ms P-R-T Axes : 057 -02 040 degrees QTc Int : 466 ms Normal sinus rhythm Inferior infarct , age undetermined Abnormal ECG When compared with ECG of 30-JUN-2019 09:16, MANUAL COMPARISON REQUIRED, DATA IS UNCONFIRMED Confirmed by RINKU BOGGS, ADRI ([id number]), rewrite editor TERESA RABAGO ([id number]) on 07/13/2019 2:05:08 PM Referred By: Yamil Sewell Confirmed By:MAGGIE DOBBS MD
--- NOTE | 2019-07-01 09:30 | CASEMGMT ---
Pt was discharged and left before SW was able to speak w/him about completing LW/POA forms. SW mailed pt the forms with information to set up an appointment w/the SW department to complete the forms, should he choose to do so. POP Trinidad
== END 2019-07-01 08:35 | disposition home or self-care (01) ==
LOC: CLSP 07:02 → ICU 07-01 08:49
PROVIDERS: Family Provider Family Medicine; PCP Family Medicine; Referring Provider Internal Medicine Cardiovascular Disease; Visit Provider Internal Medicine Cardiovascular Disease
DX: I25.110 Atherosclerotic heart disease of native coronary artery with unstable angina pectoris (principal); I95.9 Hypotension, unspecified; R00.1 Bradycardia, unspecified; I10 Essential (primary) hypertension; E78.5 Hyperlipidemia, unspecified; N40.0 Benign prostatic hyperplasia without lower urinary tract symptoms; R94.39 Abnormal result of other cardiovascular function study; Z87.891 Personal history of nicotine dependence; Z79.02 Long term (current) use of antithrombotics/antiplatelets; Z79.82 Long term (current) use of aspirin; Z79.899 Other long term (current) drug therapy; R06.09 Other forms of dyspnea; R06.02 Shortness of breath
CPT/HCPCS: 36415; 71046; 80048; 80061; 80076; 85014; 85018; 85025; 85027; 85347; 85610; 85730; 92928; 93005; 93458; 99152; 99153; J7030; J7040; Q9967; C1725; C1769; C1887; C1894; C9600

== ENCOUNTER → 2019-08-09 | Outpatient (CLI) | payer MEDICARE, SELFPAY ==
[2019-05-11 13:37] VITALS: BMI 30.1
[2019-06-30 14:04] VITALS: BMI 29.6
[2019-07-19 09:55] VITALS: BMI 29.3
--- NOTE | 2019-08-09 14:25 | PFTCOMP_ITS ---
COMPLETE PULMONARY FUNCTION TEST INTERPRETATION Brief HPI: Patient is a 68 year old male, currently under the care of Dr. Sewell, who presents to [facility] for complete pulmonary function tests secondary to diagnosis of dyspnea. Respiratory therapist reports good effort and reproducible results. Interpretation: Forced expiration spirometry shows no large airways obstructive ventilatory defect with an FEV1 of 122% predicted. There is no significant bronchodilator response by strict ATS criteria. Spirograms are of good quality and plateau normally. The respiratory flow volume loop shows a normal pattern. Lung volumes by body plethysmography show a normal total lung capacity at 7.02 L, 112% predicted. All other lung volumes are within normal limits. Diffusion capacity by carbon monoxide is normal at 101% predicted. The airway resistance is normal. No previous pulmonary function tests were available for review. Impression: These pulmonary function tests are within normal limits
== END | disposition home or self-care (01) ==
LOC: PSN 07:01
PROVIDERS: Family Provider Family Medicine; PCP Family Medicine; Referring Provider Internal Medicine Cardiovascular Disease; Visit Provider Internal Medicine Cardiovascular Disease
DX: R06.09 Other forms of dyspnea (principal)
CPT/HCPCS: 94060; 94726; 94729

== ENCOUNTER → 2019-11-23 11:38 | Outpatient (CLI) | payer MEDICARE, SELFPAY ==
[2019-06-30 14:04] VITALS: BMI 29.6
[2019-07-19 09:55] VITALS: BMI 29.3
--- NOTE | 2019-11-23 11:43 | RAD_ITS ---
STUDY: X-RAY CHEST REASON FOR EXAM: Male, 68 years old. patient complains of cough and congestion TECHNIQUE: PA and lateral views of the chest. COMPARISON: 06/02/2019 FINDINGS: Stable granuloma in the right lung base. There is no demonstrated pleural abnormality. Normal size heart. Normal mediastinum and roque. Normal visualized pulmonary arteries. Normal visualized aortic arch and descending thoracic aorta. Normal visualized thoracic spine. Normal visualized ribs, clavicles, and shoulders. There is no demonstrated abnormality of the visualized soft tissue structures of the upper abdomen. RAD/Chest PA and Lateral IMPRESSION: Stable exam. No acute cardiopulmonary process. Electronically Signed: Edy Jackson MD (Brooks) at 16:24 EST , Service support ,
== END ==
PROVIDERS: Family Provider Family Medicine; PCP Family Medicine; Referring Provider Family Medicine; Visit Provider Family Medicine
DX: R05 Cough (principal)
CPT/HCPCS: 71046

== ENCOUNTER → 2019-12-10 09:51 | Outpatient (CLI) | payer MEDICARE, SELFPAY ==
[2019-06-30 14:04] VITALS: BMI 29.6
[2019-12-06 13:30] VITALS: BMI 29.8
[2019-12-10 13:38] LABS: AST(SGOT) 15 U/L (15-37); Alanine Aminotransfer ALT/SGPT 22 U/L (16-61); Albumin, Serum 3.3 g/dL (3.2-5.0); Alkaline Phosphatase 93 U/L (45-117); Bilirubin, Direct 0.21 mg/dL (0.00-0.30); Cholesterol 84 mg/dL (200); Globulin 3.2 g/dL (2.2-4.2); High Density Lipoprotein 47 mg/dL; Protein, Total 6.5 g/dL (6.4-8.2); Triglycerides 64 mg/dL; Very Low Density Lipoprotein 13 mg/dL (5-40)
== END ==
PROVIDERS: PCP Family Medicine; Referring Provider Internal Medicine Cardiovascular Disease; Visit Provider Internal Medicine Cardiovascular Disease
DX: E78.00 Pure hypercholesterolemia, unspecified (principal)
CPT/HCPCS: 36415; 80061; 80076

== ENCOUNTER → 2019-12-20 12:43 | Outpatient (CLI) | payer MEDICARE, SELFPAY ==
[2019-06-30 14:04] VITALS: BMI 29.6
[2019-12-06 13:30] VITALS: BMI 29.8
--- NOTE | 2019-12-20 12:44 | STEWCON_ITS ---
Reason For Study: CAD, Pre-Op Stress Results Protocol: Benson Protocol WITH DEFINITY Maximum Predicted HR: 151 bpm Target HR: 128 bpm % Maximum Predicted HR: 85 % DurationHeart Rate Stage (mm:ss) (bpm) BP Comment Baseline 52 130/82No Chest Pain; 3 ML Diluted Definity Given Benson Protocol Stage I 3:00 85 146/78No Chest Pain Benson Protocol Stage II 3:00 97 150/62No Chest Pain Benson Protocol Stage III 3:00 111 164/60No Chest Pain Benson Protocol Stage IV 1:00 129 / No Chest Pain; Mild Dyspnea Recovery 81 118/74No Chest Pain Stress Duration: 10:00 mm:ss Maximum Stress HR: 129 bpm METS: 13 Baseline Echocardiogram Findings The estimated ejection fraction is 65 %. Stress Echo Wall motion Data Resting WM Intermediate WM Stress WM Resting Wall Motion Wall Motion Stress No regional wall motion No regional wall motion abnormalities noted. abnormalities noted. EKG Data The baseline ECG displays normal sinus rhythm. The patient exercised according to the regular Benson protocol for a total duration of 10:00. The maximum heart rate attained was 136 beats per minute. This was 90% of maximum predicted heart rate. The patient exercised into stage 4 of the Benson protocol. During stress, there were no ST or T wave changes noted to suggest ischemia. No clinical angina was noted. Interpretation Summary The estimated ejection fraction is 65 %. Normal, adequate, treadmill echocardiogram. Negative for ischemia by EKG and echocardiographic criteria. No anginal symptoms noted. Rare PVCs noted. Average exercise capacity for age. Test terminated due to the attainment target heart rate. Final LVEF is 75%. Decreased sensitivity due to poor echo windows requiring Definity agent. Patient tolerated procedure well. No complications. The study was technically difficult. Contrast injection was performed. Ordering Physician: Yamil Sewell Referring Physician: Joss Palacios Performed By: Chapito Willis RCS
== END ==
PROVIDERS: PCP Family Medicine; Referring Provider Internal Medicine Cardiovascular Disease; Visit Provider Internal Medicine Cardiovascular Disease
DX: I25.10 Atherosclerotic heart disease of native coronary artery without angina pectoris (principal); N40.0 Benign prostatic hyperplasia without lower urinary tract symptoms; Z95.5 Presence of coronary angioplasty implant and graft; Z51.81 Encounter for therapeutic drug level monitoring
CPT/HCPCS: 93017; 93350; Q9957; A4216; C8928

== ENCOUNTER → 2020-07-12 | Outpatient (CLI) | payer MEDICARE, SELFPAY ==
[2019-06-30 14:04] VITALS: BMI 29.6
[2020-07-06 09:24] VITALS: BMI 30.7
[2020-07-12 10:57] LABS: AST(SGOT) 24 U/L (15-37); Alanine Aminotransfer ALT/SGPT 33 U/L (16-61); Albumin, Serum 3.2 g/dL (3.2-5.0); Alkaline Phosphatase 99 U/L (45-117); Cholesterol 88 mg/dL (200); Globulin 3.2 g/dL (2.2-4.2); High Density Lipoprotein 46 mg/dL; Protein, Total 6.4 g/dL (6.4-8.2); Triglycerides 77 mg/dL; Very Low Density Lipoprotein 15 mg/dL (5-40)
== END | disposition home or self-care (01) ==
LOC: MTLAB 08:37
PROVIDERS: PCP Family Medicine; Referring Provider Internal Medicine Cardiovascular Disease; Visit Provider Internal Medicine Cardiovascular Disease
DX: E78.5 Hyperlipidemia, unspecified (principal); I25.10 Atherosclerotic heart disease of native coronary artery without angina pectoris
CPT/HCPCS: 36415; 80061; 80076

== ENCOUNTER → 2020-09-20 | Outpatient (CLI) | payer MEDICARE, SELFPAY ==
[2019-06-30 14:04] VITALS: BMI 29.6
[2020-07-06 09:24] VITALS: BMI 30.7
== END | disposition home or self-care (01) ==
LOC: SL 20:05
DX: G47.33 Obstructive sleep apnea (adult) (pediatric) (principal)
CPT/HCPCS: 95810

== ENCOUNTER 2022-12-25 13:40 | Emergency (ER) | payer MEDICARE, SELFPAY ==
[2019-06-30 14:04] VITALS: BMI 29.6
[2022-12-25 13:41] VITALS: BP 108/73; PULSE 79; RESP 18; TEMP 36.2; O2SAT 96; BMI 31.2
[2022-12-25 13:44] VITALS: BP 108/73; PULSE 75; RESP 24; O2SAT 93
--- NOTE | 2022-12-25 13:47 | EKG12_ITS ---
Test Reason : CP Blood Pressure : / mmHG Vent. Rate : 070 BPM Atrial Rate : 070 BPM P-R Int : 196 ms QRS Dur : 088 ms QT Int : 432 ms P-R-T Axes : 034 -38 059 degrees QTc Int : 466 ms Normal sinus rhythm Left axis deviation Low voltage QRS Possible Anterolateral infarct , age undetermined Abnormal ECG Confirmed by RINKU BOGGS, ADRI ([id number]), commercial production editor TERESA RABAGO ([id number]) on 12/27/2022 8:53:07 AM Referred By: Confirmed By:MAGGIE DOBBS MD
--- NOTE | 2022-12-25 13:50 | RAD_ITS ---
STUDY: X-RAY CHEST REASON FOR EXAM: Male, 71 years old. Chest pain TECHNIQUE: Single AP portable view of the chest. COMPARISON: Comparison is made with prior study dated 11/23/2019. FINDINGS: EKG electrodes are seen. Mild increased markings in the lateral aspect of the left lower lobe with blunting of the left costophrenic angle. This may represent atelectasis and/or early infiltrate. Scattered bilateral calcified granulomas. Normal size heart. Normal mediastinum and roque. Normal visualized pulmonary arteries. Normal visualized aortic arch and descending thoracic aorta. Normal visualized thoracic spine. Normal visualized ribs, clavicles, and shoulders. There is no demonstrated abnormality of the visualized soft tissue structures of the upper abdomen. RAD/Chest 1 View (Portable) IMPRESSION: Increased markings at the left lung base with blunting of the left costophrenic angle. Follow-up is recommended. Electronically Signed: Prince Lopez MD at 14:23 EST ,
[2022-12-25 13:53] VITALS: O2SAT 98
[2022-12-25 13:55] LABS: Absolute Lymphocyte Count 1.02 X10^3/uL (0.83-4.51); Absolute Neutrophil Count 3.1 X10^3/uL (2.0-7.7); Basophil# 0.04 X10^3/uL; Basophil% 0.8 % (0-1); Eosinophil# 0.19 X10^3/uL; Eosinophils% 3.9 % (0-5); Hematocrit 42.8 % (40-54); Hemoglobin 14.7 g/dL (13.0-16.5); Lymphocyte # 1.02 X10^3/ul (0.83-4.51); Lymphocyte % 20.9 % (19-41); Mean Corp Hgb Conc 34.3 g/dL (32-36); Mean Corpuscular Hgb 31.5 pg (27.0-32.0); Mean Corpuscular Volume 91.6 fL (80-94); Mean Platelet Vol. 9.5 fl (6.2-12.0); Monocyte# 0.49 X10^3/uL; NRBC Flagged by Analyzer 0 % (0-5); Neutrophil # 3.12 X10^3/uL (2.7-7.7); Platelet Count 163 K/mm3 (150-450); RBC Distribution Width CV 12.4 % (11.6-14.6); RBC Distribution Width SD 41.1 fl (35.1-43.9); Red Blood Count 4.67 M/mm3 (4.6-6.2); White Blood Count 4.9 K/mm3 (4.4-11.0)
[2022-12-25 14:10] LABS: Anion Gap 8 (5-15); BUN 11 mg/dL (7-18); BUN/Creat Ratio 10.4 RATIO (10-20); Calcium,Total 9.1 mg/dL (8.5-10.1); Chloride 109 mmol/L (98-107); Creatinine, Serum 1.06 mg/dL (0.70-1.30); EST Glomerular Filtration Rate 73 mL/min (>60); Est Glom Filt Rate - Afr Amer 88 mL/min (>60); Estimated Creatinine Clearance 62.99 ml/min; Glucose 152 mg/dL (74-106); Potassium 3.8 mmol/L (3.5-5.1); Sodium Level 142 mmol/L (136-145); Troponin-I HS 7 pg/mL (3.0-78.0)
--- NOTE | 2022-12-25 14:28 | EX.ED.DYSGE1 ---
HPI History of Present Illness Chief Complaint: Chest Pain Detail of Chief Complaint: Shortness of breath and near syncope Informant: patient Narrative Narrative: Patient presents to the emergency department complaint of shortness of breath and feeling like he is in a pass out. Patient states that he was driving when he started feeling like he could not get a full breath and started to breathe fast. Patient pulled over to the side of the road and knew that he was near a fire department so that he walked to the fire department and folic he was in a pass out when he got there. Patient apparently had high blood pressure when EMS checked him in the 150 systolic which is high for him. Patient denied chest pain at any point. Patient states that he had a similar episode several weeks ago when he had a stress echo and a CT scan of his chest that were essentially unremarkable other than a small pericardial effusion. Patient denies any increase stress. Per and daughter he has had some history of anxiety. Patient feeling improved as I interview him. Patient does have history of cardiac stent in 2019. Prior similar symptoms: [facility] Medical History (Updated 12/25/22 @ 16:[address] Dionna Rojas, ) Abnormal EKG Abnormal stress echo Atherosclerosis of coronary artery of [place] heart without angina pectoris BPH (benign prostatic hyperplasia) Dyspnea on exertion Encounter for monitoring antiplatelet therapy Essential hypertension Family history of ischemic heart disease Hyperlipidemia Other forms of angina pectoris Home Medications dutasteride 0.5 mg capsule 0.5 mg PO DAILY 11/05/17 [History Last Taken 06/30/19] aspirin 81 mg tablet,delayed release (Adult Low Dose Aspirin) 81 mg PO DAILY #30 tabs 05/11/19 [Rx Last Taken 06/30/19] fluticasone propionate 50 mcg/actuation nasal spray,suspension 2 spray intranasal DAILY PRN Dyspnea 06/28/19 [History Last Taken Unknown] atorvastatin 40 mg tablet 40 mg PO QHS #30 tabs 06/22/20 [Rx Last Taken Unknown] carvedilol 3.125 mg tablet 3.125 mg PO BID #60 tabs 06/22/20 [Rx Last Taken Unknown] lisinopril 10 mg tablet 10 mg PO DAILY #90 tabs 06/22/20 [Rx Last Taken Unknown] loratadine 10 mg capsule 10 mg PO DAILY 07/06/20 [History Last Taken Unknown] lorazepam 1 mg tablet (Ativan) 1 mg PO TID PRN anxiety #10 tabs 12/25/22 [Rx Last Taken Unknown] Allergy/AdvReac Type Severity Reaction Status Date / Time No Known Allergies Allergy Verified 12/06/19 13:38 Family History Mother CAD (coronary artery disease) Brother , age 69 Pancreatic cancer Father , age 65 from pneumonia CAD (coronary artery disease) S/P CABG (coronary artery bypass graft), Onset Age: 65 Sister CAD (coronary artery disease) Stented coronary artery Brother CAD (coronary artery disease) Sister Multiple sclerosis Surgical History History of cholecystectomy (07/1992) History of cystoscopy (05/10/14) History of prostate biopsy (05/21/11) History of transurethral resection of prostate (03/04/12) Presence of stent in coronary artery Social History (Updated 07/06/20 @ 13:[address] Yamil Sewell MD) Smoking Status: Former smoker quit date: 11/24/94 Tobacco: How many years used: 20 alcohol intake: current alcohol intake frequency: holidays/special occasions only Alcohol type: beer substance use type: does not use caffeine: No ROS ROS ED Review of Systems ROS Unobtainable: other Constitutional Constitutional ED: Reports lethargy; Denies chills, fever(s), sweats or weight loss Eyes Eyes: Denies blurry vision, change in vision or diplopia ENT ENT ED: Denies rhinorrhea or sore throat Cardiovascular Cardiovascular: Reports chest pain; Denies orthopnea or racing heartbeat Respiratory/Chest Respiratory/Chest: Reports dyspnea; Denies cough, dyspnea on exertion, orthopnea or sputum Gastrointestinal Gastrointestinal: Denies abdominal pain, diarrhea, nausea or vomiting Genitourinary Genitourinary ED: Denies dysuria, hematuria or urinary frequency Musculoskeletal Musculoskeletal: Denies arthralgias, back pain, myalgias or neck pain Integumentary Denies abscess, Abrasions or rash Neurologic Neurologic: Denies headache(s) or weakness Psychiatric Psychiatric: Denies anxiety, depression or suicidal thoughts Endocrine Endocrinology: Denies polydipsia, polyphagia or polyuria Hematologic/Lymphatic Hematologic/Lymphatic: Denies easy bleeding, easy bruising or lymphadenopathy Allergic/Immunologic Allergic/Immunologic ED: Denies mouth swelling, tongue swelling or urticaria EXAM Physical Exam Const Vital Signs: 12/25/22 13:41 12/25/22 13:44 12/25/22 13:44 Temperature 97.2 F L Temperature Source Temporal Pulse Rate 79 75 Respiratory Rate 18 24 H Respiratory Effort Short of Breath Blood Pressure 108/73 108/73 Blood Pressure Mean 84 84 Pulse Ox 96 93 Oxygen Delivery Method Room Air Room Air Oxygen Flow Rate (L/min) 12/25/22 13:53 12/25/22 15:31 Temperature Temperature Source Pulse Rate 62 Respiratory Rate 20 H Respiratory Effort Blood Pressure 116/82 H Blood Pressure Mean 93 Pulse Ox 98 98 Oxygen Delivery Method Nasal Cannula Room Air Oxygen Flow Rate (L/min) 2 Positive well nourished and well developed General Appearance ED: well developed and NAD HEENT Reports TM's clear and moist mucous membranes normocephalic and atraumatic; Negative for trauma or tenderness Tympanic Membrane ED: Yes TM's clear Eyes PERRL and EOMs intact bilaterally General Eye ED: Negative for pale conjunctiva or scleral icterus Neck no lymphadenopathy, supple and no JVD General: Negative for tenderness Chest Wall inspection of chest normal and palpation of chest normal Chest: Negative for tenderness Resp normal respiratory effort and clear to auscultation bilaterally Effort and Inspection: Negative for respiratory distress or pain with movement Auscultation: Negative for rhonchi, wheezes or diminished lung sounds Cardio regular rate, regular rhythm, S1 normal heart sound, S2 normal heart sound and no murmurs Peripheral Pulses: pulses 2+ throughout GI normal to inspection, nondistended, normoactive bowel sounds, soft to palpation, non-tender, non-distended and no masses Back/Spine no CVA tenderness and no thoracic nor lumbar tenderness Extremity normal to inspection General Extremety ED: Negative for edema General Extremity: Negative for edema Neuro oriented x3, CN's II-XII intact bilaterally, no sensory deficits noted and gait normal Sensorium / Orientation: awake, alert, oriented to person, oriented to place and oriented to time Motor Exam: strength 5/5 throughout and strength abnormal Psych mental status grossly normal Skin no rashes or lesions noted and no wounds MDM MDM MDM Narrative Medical decision making narrative: I will establish on arrival patient placed on shelter monitor. He was not having any chest pain. Patient had a EKG that showed a sinus rhythm with rate of 70 bpm with old inferior infarct noted otherwise nothing acute. Patient's CBC with that was normal. Chemistries unremarkable. D-dimer was normal at 0.33. Initial troponin was normal at 7. His delta troponin 2 hours was normal at 5. Chest x-ray was unremarkable. Patient's symptoms essentially resolved. At this point etiology of his dyspnea unclear although I suspect possibility of anxiety. His heart score is a 5 based on the fact that he has had prior coronary artery disease with stenting and given his age. I do not feel he is having acute coronary syndrome. Patient's had recent stress echo and a CT scan of the chest. I do not feel he needs admitted emergently. Patient has had no exertional symptoms. Patient advised to follow-up with his primary care physician and mortgage protection sales. I will write him a prescription for as needed Ativan. Lab Data Attestation: I reviewed the patient's lab results. Labs: Laboratory Results - last 24 hr 12/25/22 12/25/22 12/25/22 13:40 13:40 13:40 WBC 4.9 RBC 4.67 Hgb 14.7 Hct 42.8 MCV 91.6 MCH 31.5 MCHC 34.3 RDW Std Deviation 41.1 RDW Coeff of Luis 12.4 Plt Count 163 MPV 9.5 Immature Gran % (Auto) 0.400 Neut % (Auto) 64.0 Lymph % (Auto) 20.9 [facility] % (Auto) 10.0 Eos % (Auto) 3.9 Baso % (Auto) 0.8 Absolute Neuts (auto) 3.1 Absolute Lymphs (auto) 1.02 Nucleated RBC % 0 D-Dimer Quant (PE/DVT) 0.33 Sodium 142 Potassium 3.8 Chloride 109 H Carbon Dioxide 25.0 Anion Gap 8 BUN 11 Creatinine 1.06 Estim Creat Clear Calc 62.99 Est GFR (MDRD) Af Amer 88 Est GFR (MDRD) Non-Af 73 BUN/Creatinine Ratio 10.4 Glucose 152 H Calcium 9.1 Troponin I High Sens 7 12/25/22 15:50 WBC RBC Hgb Hct MCV MCH MCHC RDW Std Deviation RDW Coeff of Luis Plt Count MPV Immature Gran % (Auto) Neut % (Auto) Lymph % (Auto) [facility] % (Auto) Eos % (Auto) Baso % (Auto) Absolute Neuts (auto) Absolute Lymphs (auto) Nucleated RBC % D-Dimer Quant (PE/DVT) Sodium Potassium Chloride Carbon Dioxide Anion Gap BUN Creatinine Estim Creat Clear Calc Est GFR (MDRD) Af Amer Est GFR (MDRD) Non-Af BUN/Creatinine Ratio Glucose Calcium Troponin I High Sens 5 Radiography Diagnostic Testing: Clinical Impression(s) from Imaging Studies Chest X-Ray 12/25/22 13:50 IMPRESSION: Increased markings at the left lung base with blunting of the left costophrenic angle. Follow-up is recommended. Electronically Signed: Prince Lopez MD at 14:23 EST , 1 view chest x-ray obtained interpreted by myself as no acute infiltrate or pneumothorax. Radiology felt there was increased markings left lung base with blunting of the left costal phrenic angle. EKG Initial EKG: Attestation: I personally reviewed and interpreted this EKG as follows: Comments: Sinus rhythm with a rate of 70 bpm with old inferior infarct noted. Discharge Plan Triage Chief Complaint: Chest Pain ED Provider: Dionna Rojas Dx/Rx/DC Orders Clinical Impression: Acute dyspnea, Anxiety Instructions: ED Anxiety Reaction, ED Dyspnea Prescriptions: New lorazepam [Ativan] 1 mg tablet 1 mg PO TID PRN (Reason: anxiety) Qty: 10 0RF No Action aspirin [Adult Low Dose Aspirin] 81 mg tablet,delayed release (DR/EC) 81 mg PO DAILY Qty: 30 11RF fluticasone propionate 50 mcg/actuation spray,suspension 2 spray INTRANASAL DAILY PRN (Reason: Dyspnea) loratadine 10 mg capsule 10 mg PO DAILY dutasteride 0.5 MG capsule 0.5 mg PO DAILY lisinopril 10 mg tablet 10 mg PO DAILY Qty: 90 3RF carvedilol 3.125 mg tablet 3.125 mg PO BID Qty: 60 11RF atorvastatin 40 mg tablet 40 mg PO QHS Qty: 30 11RF Primary Care Provider: GUSTAVO STONE Referrals: [facility],Out of [Non-Staff] - 3-5 Days Disposition Disposition: Home, Self Care
[2022-12-25 15:31] VITALS: BP 116/82; PULSE 62; RESP 20; O2SAT 98
[2022-12-25 15:53] LABS: D-Dimer Quantitative (DVT/PE) 0.33 FEU/ug/m (0.27-0.49)
--- NOTE | 2022-12-25 15:53 | CHAPLAIN ---
Type of Pastoral Visit ___ Initial Visit ___ Follow-up Visit ___ On-call Visit ___ General Patient Visit ___ Spiritual Assessment ___ Family Conference ___ Bereavement ___ Rapid Response ___ Code Blue _x__ Other (describe below) Pastoral Care Referral From ___ Patient _x__ Family ___ Nurse ___ Physician ___ Human Factors Ergonomist ___ Power Shovel Mechanic ___ Other (describe below) Sacrament/Intervention _x__ Active listening ___ Anointing ___ Voodoo ___ Bereavement ___ Communion ___ Nora exploration ___ ___ Life review _x__ Prayer ___ Reconciliation ___ Sacrament of Sick _x__ Supportive presence ___ Wedding ___ Other (describe below) Pastoral Comments making rounds in the ED and spouse and daughter of this patient were at triage desk looking for help; offered assistance and took family members to patient room; family expresses thankfulness for support and asked for prayer; pt also relayed his experience of coming by squad and that providential help given with squad and ED
[2022-12-25 16:26] LABS: Troponin-I HS 5 pg/mL (3.0-78.0)
[2022-12-25 16:46] VITALS: BP 121/89; PULSE 60; RESP 19; O2SAT 97
== END 2022-12-25 16:55 | disposition home or self-care (01) ==
PROVIDERS: Emergency Provider Emergency Medicine; PCP Internal Medicine; Visit Provider Emergency Medicine
DX: R06.00 Dyspnea, unspecified (principal); R55 Syncope and collapse; Z95.5 Presence of coronary angioplasty implant and graft; I10 Essential (primary) hypertension; Z87.891 Personal history of nicotine dependence; I25.10 Atherosclerotic heart disease of native coronary artery without angina pectoris; F41.9 Anxiety disorder, unspecified
CPT/HCPCS: 71045; 80048; 84484; 85025; 85379; 93005; 99285